=== PATIENT | female | born 1960 | race Caucasian/White ===

== ENCOUNTER 2021-01-05 20:41 | Emergency (ER) | payer OTHER, SELFPAY ==
[2021-01-05] MEDS ORDERED: Acetaminophen 500 MG TAB ONE (21:26)
== END 2021-01-05 23:06 | disposition home or self-care (01) ==
LOC: ERS 20:41
DX: S16.1XXA Strain of muscle, fascia and tendon at neck level, initial encounter (principal); R07.89 Other chest pain; I10 Essential (primary) hypertension; V43.62XA Car passenger injured in collision with other type car in traffic accident, initial encounter; Z79.899 Other long term (current) drug therapy; I48.91 Unspecified atrial fibrillation
CPT/HCPCS: 71045; 72125; 93005